=== PATIENT | female | born 1990 | race African-American/Black ===

== ENCOUNTER 2016-11-15 15:14 | Emergency (ER) | payer MEDICAID ==
[~2016-11-15] VITALS: Ht 160 cm; Wt 84.0 kg
[~2016-11-15 15:14] MED LIST: BACT2OIN TOP; CIPR500T4 PO; HYDRO2.5%T TOP; TRIA.1%T TOP
[2016-11-15 15:26] VITALS: BP 138/83; PULSE 77; RESP 16; TEMP 99.7; O2SAT 100
--- NOTE | 2016-11-15 18:11 | PD ---
HPI Chief Complaint: ENT Complaint Time Seen by Provider: 17:45 Travel History International Travel<30 days: No Contact w/Intl Traveler<30days: No Traveled to known affect area: No History of Present Illness HPI 26-year-old female presents to the emergency room for evaluation of sore throat , nonproductive cough, fever, chills, bilateral earaches, and bodyaches for the past 11 days. Patient states her symptoms started with body aches and have progressed. Reports coughing only occurs with brushing her teeth. She coughed up a large chunk of mucus one time. She thought she just had a virus so she was trying to wait it out but she has not been improving. Patient has been taking [id number] medications without relief of symptoms. TMAX was 102 which improves with ibuprofen but denies returned. Denies congestion. Daughter was diagnosed with strep throat earlier this week. [facility] Past Medical History Medical History: Denies Significant Hx Diminished Hearing: No Immunizations Current: Yes Tetanus Vaccination: < 5 Years Influenza Vaccination: No ?: Unknown LMP: oct 25 2016 : 2 Para: 1 : 1 Past Surgical History Surgical History: No Previous Surgery Social History Alcohol Use: Yes ([facility]) Tobacco Use: No Substance Use: No Allergies-Medications (Allergen,Severity, Reaction): Coded Allergies: No Known Allergies (Verified , 11/15/16) Reported Meds & Prescriptions Reported Meds & Active Scripts Active Amoxicillin 500 Mg Tab 500 Mg PO BID 10 Days Review of Systems Except as stated in HPI: all other systems reviewed are Neg Physical Exam Narrative GENERAL: Well-nourished, obese female in no acute distress. Afebrile at 99.7. Ambulatory. SKIN: Warm and dry. HEAD: Normocephalic. EYES: No scleral icterus. No injection or drainage. ENT: Mucosa pink and moist. Severe erythema with bilateral exudates and halitosis. No uvular edema. No uvular, palatal, or tonsillar deviation. Airway patent. Nasal turbinates appear normal without nasal blood, purulent drainage or septal hematoma. EARS: Bilateral pinnae and external canals appear within normal limits. Bilateral tympanic membranes without erythema, dullness or perforation. NECK: Supple, trachea midline. No JVD or lymphadenopathy. CARDIOVASCULAR: Regular rate and rhythm without murmurs, gallops, or rubs. RESPIRATORY: Breath sounds equal bilaterally. No accessory muscle use. No crackles, rales, wheezes, or rhonchi. Data Data Last Documented VS Vital Signs Date Time Temp Pulse Resp B/P Pulse Ox O2 Delivery O2 Flow Rate FiO2 11/15/16 15:26 99.7 77 16 138/83 100 Orders Group A Rapid Strep Screen (11/15/16 17:54) MDM Medical Decision Making Medical Screen Exam Complete: Yes Emergency Medical Condition: Yes Medical Record Reviewed: Yes Differential Diagnosis Influenza versus upper respiratory infection versus streptococcal pharyngitis Narrative Course 26-year-old female presents to the emergency room for evaluation of multiple cough and cold symptoms including sore throat for the past 11 days. Mildly elevated temperature of 99.7 in the emergency room. Patient has severe erythema with bilateral exudates and halitosis. Rapid strep is positive. Discharged with prescription for amoxicillin and told to follow up with a primary care physician or return to the emergency room for worsening symptoms. She understands and agrees to this plan. Diagnosis Primary Impression: Acute streptococcal pharyngitis Referrals: Primary Care Physician Patient Instructions: General Instructions, Strep Throat (ED) Additional Instructions: Rest and drink plenty of fluids. Take amoxicillin as directed, until gone. Take ibuprofen with food as directed, as needed for pain. Follow-up with a primary care physician. Return to the emergency room for worsening symptoms. Med/Other Pt SpecificInfo: Prescription(s) given Scripts Amoxicillin 500 Mg Yug135 Mg PO BID 10 Days Ref 0 Prov:Donna Hayes MD 11/15/16 Disposition: 01 DISCHARGE HOME Condition: Stable Carmen Jones Nov 15, 2016 18:11
[2016-11-15] MEDS ORDERED: AMOX500T PO (18:46)
== END 2016-11-15 19:37 | disposition home or self-care (01) ==
LOC: PHED 15:14 → PHEFT 19:37
DX: J02.0 Streptococcal pharyngitis (principal); B95.0 Streptococcus, group A, as the cause of diseases classified elsewhere; R05 Cough; H92.03 Otalgia, bilateral
CPT/HCPCS: 87880; 99283